=== PATIENT | male | born 1970 | race Caucasian/White ===

== ENCOUNTER 2022-02-07 04:29 | Day surgery (SDC) | payer OTHER ==
[2022-02-03 17:11] VITALS: BMI 23.6
[2022-02-07] MEDS ORDERED: PROPOFOL 20 ML ONE (13:55)
[2022-02-07] MEDS ORDERED: MIDAZOLAM HCL 2 MG/2 ML SINGLE DOSE VIAL ONE (13:55)
[2022-02-07 15:13] VITALS: BP 107/71; PULSE 63; TEMP 98
== END 2022-02-07 15:00 | disposition home or self-care (01) ==
LOC: JASU-SURG 04:29
PROVIDERS: ATTEND Urology
PROC: 0TF4XZZ Fragmentation in Left Kidney Pelvis, External Approach (ICD-10-PCS; principal; 2022-02-07 14:00)
DX: N20.0 Calculus of kidney (principal)